=== PATIENT | female | born 1985 | race Hispanic/Latino ===

== ENCOUNTER → 2023-12-08 09:14 | Outpatient (REF) | payer OTHER, SELFPAY ==
[2023-12-08 09:36] LABS: Hemoglobin 10.4 g/dL (12.0-16.0)
[2023-12-08 11:51] LABS: Iron 55 ug/dl (37-170)
[2023-12-08 12:00] LABS: Glycohemoglobin (HgbA1c) 5.8 % (4.0-5.6)
[2023-12-08 12:02] LABS: Percent Saturation 12 % (20-50); Total Iron Binding Capacity 452 ug/dl (265-497)
[2023-12-08 12:09] LABS: Vitamin D, 25-OH*** 31.8 ng/mL (30-80)
[2023-12-08 12:27] LABS: Ferritin 5.8 ng/ml (6.24-137)
[2023-12-08 12:43] LABS: Vitamin B12 > 1000 pg/ml (239-931)
== END ==
LOC: CLINIC 09:14
PROVIDERS: ATTENDING PHYSICIAN Nurse Practitioner Acute Care
DX: E55.9 Vitamin D deficiency, unspecified (principal); R73.03 Prediabetes; D64.9 Anemia, unspecified
CPT/HCPCS: 36415; 82306; 82607; 82728; 83036; 83540; 83550; 85018

== ENCOUNTER → 2024-02-14 10:15 | Outpatient (REF) | payer OTHER, SELFPAY ==
[2024-02-14 10:52] LABS: % Basophils 0.5 % (0-2); % Eosinophils 2.8 % (0-6); % Immature Granulocytes 0.1 % (0-0.5); % Lymphocytes 33.9 % (20.5-51.1); % Monocytes 6.6 % (1.7-9.3); % Neutrophils 56.1 % (42.2-75.2); Absolute Eosinophils 0.2 10^3/uL (0-0.7); Absolute Lymphocytes 2.6 10^3/uL (1.2-3.4); Absolute Monocytes 0.5 10^3/uL (0.1-0.6); Absolute Neutrophils 4.2 10^3/uL (1.4-6.5); Hematocrit 38.5 % (37.0-47.0); Hemoglobin 12.1 g/dL (12.0-16.0); Mean Corp Hgb Conc. 31.4 g/dL (33.0-37.0); Mean Corpuscular Volume 89.1 fL (81.0-99.0); Mean Platelet Volume 10.9 fL (7.4-10.4); Nucleated Red Blood Cells % 0 %; Platelet Count 167 10^3/uL (130-400); Red Blood Cell Count 4.32 10^6/uL (4.20-5.40); Red Cell Dist. Width 14.6 % (11.5-14.5); White Blood Cell Count 7.6 10^3/uL (4.8-10.8)
== END ==
LOC: REG 10:15
PROVIDERS: ATTENDING PHYSICIAN Physician Assistant Medical
DX: D64.9 Anemia, unspecified (principal)
CPT/HCPCS: 36415; 85025

== ENCOUNTER → 2024-08-09 18:08 | Outpatient (REF) | payer OTHER, SELFPAY ==
[2024-08-12 20:56] LABS: Chlamydia trachomatis,ThinPrep Negative (Negative); Neisseria gonorrhoeae,ThinPrep Negative (Negative); Specimen Source Cervical
== END ==
LOC: CLINIC 18:08
PROVIDERS: ATTENDING PHYSICIAN Nurse Practitioner Adult Health
DX: N73.9 Female pelvic inflammatory disease, unspecified (principal)
CPT/HCPCS: 87491; 87591; G0123